=== PATIENT | female | born 1965 | race Caucasian/White ===

== ENCOUNTER 2018-03-26 12:18 | Emergency (ER) | payer OTHER ==
--- NOTE | 2018-03-26 13:43 | UC ---
Respiratory Complaint HPI - HPI Summary HPI Summary: 52 y/o female presents to the urgent care c/o nasal congestion w/ yellowish nasal discharge, productive cough w/ yellowish phlegm for the past 2 weeks. Pt reports she has Hx of asthma and she started w/ wheezing about 3 days. She has been using her albuterol inhaler w/o any improvement. Mild SOB this morning. Pt denies fever, chest pain, abdominal pain, dizziness, STUART, N/v/d. - History of Current Complaint Chief Complaint: UCRespiratory Stated Complaint: CONGESTION ASTHMA Time Seen by Provider: 03/26/18 13:26 Hx Obtained From: Patient ?: No - Hx of hysterectomy Onset/Duration: Gradual Onset, Lasting Weeks - 2 weeks of URI symptoms, Still Present, Worse Since - 2 days w/ a lot of wheezing Timing: Intermittent Episodes Severity Initially: Mild Severity Currently: Moderate Pain Intensity: 2 - body aches Pain Scale Used: 0-10 Numeric Character: Cough: Productive, Sputum Description: - yellowish Aggravating Factors: Recumbent Position Alleviating Factors: Bronchodilator, OTC Meds Associated Signs And Symptoms: Positive: Dyspnea, Chills, Wheezing, URI, Nasal Congestion, Sinus Discomfort - Risk Factors Pulmonary Embolism Risk Factors: Negative Cardiac Risk Factors: Negative Pseudomonas Risk Factors: Negative Tuberculosis Risk Factors: Negative - Allergies/Home Medications Allergies/Adverse Reactions: Allergies Allergy/AdvReac Type Severity Reaction Status Date / Time bee venom protein (honey bee) Allergy Swelling Verified 03/26/18 12:36 codeine Allergy anaph Verified 03/26/18 12:37 Penicillins Allergy Hives Verified 03/26/18 12:37 Home Medications: Home Medications FLUoxetine CAP* [Prozac CAP*] 5 mg PO DAILY 03/26/18 [History Confirmed 03/26/18 ] traZODone TAB* [Desyrel TAB*] 29 mg PO DAILY 03/26/18 [History Confirmed ] PMH/Surg Hx/FS Hx/Imm Hx Previously Healthy: Yes Respiratory History: Asthma - Surgical History Surgical History: Yes Surgery Procedure, Year, and Place: Hysterectomy, 2008, [place]. Right Carpal Tunnel, 2007, [facility]. , 1987, [facility] - Family History Known Family History: Positive: Cardiac Disease, Hypertension, Diabetes - Social History Occupation: Employed Full-time Lives: With Family Alcohol Use: Rare Substance Use Type: None Smoking Status (MU): Never Smoked Tobacco - Immunization History Most Recent Influenza Vaccination: Not the Season Review of Systems All Other Systems Reviewed And Are Negative: Yes Constitutional: Positive: Negative Skin: Positive: Negative Eyes: Positive: Negative ENT: Positive: Ear Ache - b/L ear pressure, Nasal Discharge - yellowish, Sinus Congestion, Sinus Pain/Tenderness Respiratory: Positive: Shortness Of Breath - mild, Cough - productive, Other - wheezing Cardiovascular: Positive: Negative Gastrointestinal: Positive: Negative Genitourinary: Positive: Negative Motor: Positive: Negative Neurovascular: Positive: Negative Musculoskeletal: Positive: Negative Neurological: Positive: Negative Psychological: Positive: Negative Is Patient Immunocompromised?: No Physical Exam - Summary Physical Exam Summary: Vital Signs Reviewed: Yes General: well developed, well nourished obese female sitting in the examining table w/o any apparent distress Eyes: Positive: Conjunctiva Clear - PERRLA, EOMI, fundi grossly normal ENT: Positive: Normal ENT inspection, Hearing grossly normal, Pharynx normal, Nasal congestion - edematous and erythematous nasal mucosa, Nasal drainage - yellowish drainage, TMs normal. Negative: Tonsillar swelling, Tonsillar exudate Neck: Positive: Supple, Nontender, No Lymphadenopathy Respiratory: no orthopnea or dyspnea. Able to speak in full sentences, no retractions or accessory muscle use, no tripod position, stridor, or head bobbing. Positive breath sounds bilaterally. diffuse scattered wheezing and rhonchi on b/L lungs, no crackles or rales. Cardiovascular: Positive: RRR, No Murmur, Pulses Normal, Brisk Capillary Refill Abdomen Description: Positive: Nontender, No Organomegaly, Soft. Negative: CVA Tenderness (R), CVA Tenderness (L) Bowel Sounds: Positive: Present Musculoskeletal Exam: Normal Musculoskeletal: Positive: Strength Intact, ROM Intact, No Edema Neurological Exam: Normal Psychological Exam: Normal Skin Exam: Normal Triage Information Reviewed: Yes Vital Signs: Initial Vital Signs Temp 97.7 F 03/26/18 12:32 Pulse 87 03/26/18 12:32 Resp 16 03/26/18 12:32 BP 137/61 03/26/18 12:32 Pulse Ox 98 03/26/18 12:32 UC Diagnostic Evaluation - Laboratory O2 Sat by Pulse Oximetry: 98 Respiratory Course/Dx - Course Course Of Treatment: 52 y/o female presents to the urgent care c/o nasal congestion w/ yellowish nasal discharge, productive cough w/ yellowish phlegm for the past 2 weeks. Pt reports she has Hx of asthma and she started w/ wheezing about 3 days. She has been using her albuterol inhaler w/o any improvement. Mild SOB this morning. Pt denies fever, chest pain, abdominal pain , dizziness, STUART, N/v/d. Hx obtained. Pt w/ scattered wheezes on bilaterally lungs, and mild rhonchi, good air entry B/L on examination. O2Sat:98%. Pt given Prednisone PO and Duoneb Treatment to alleviate symptoms. Chest X-ray ordered: impression: No acute cardiopulmonary disease observed as per radiologist. Pt w/ acute asthma exacerbation due to bronchitis. Pt tolerated well treatment and lungs improved,and wheezing resolved. Patient prescribed Doxyxycline PO, Prednisone taper dose, Albuterol neb. to alleviate symptoms as directed below. The patient was recommended to increase fluid intake. Take medications as recommended. Pt advised to returned to the clinic or f/u w/ her PCP if symptoms do not improve. All D/C instructions explained. Patient understood and agree w/ plan of care. Pt left clinic hemodynamically stable , A& OX3 - Differential Dx/Diagnosis Differential Diagnosis/HQI/PQRI: Bronchitis, Influenza, Lower Resp Infection, Sinusitis, Other - pneumonia Provider Diagnosis: Asthma with acute exacerbation in adult, Bronchitis Discharge - Sign-Out/Discharge Documenting (check all that apply): Patient Departure - d/c home All imaging exams completed and their final reports reviewed: Yes - Discharge Plan Condition: Stable Disposition: HOME Prescriptions: Albuterol/Ipratropium NEB.SIDNEY* [Duoneb (Albuterol 2.5 MG/Ipratropium 0.5 MG)] 1 neb INH Q6H PRN #1 charo PRN Reason: Wheezing DOXYcycline CAP(*) [DOXYcycline 100MG CAP(*)] 100 mg PO BID #20 cap predniSONE TAB* [Deltasone 20 MG TAB*] 20 mg PO DAILY #8 tab Patient Education Materials: Asthma (ED), Acute Bronchitis (ED) Forms: *Work Release Referrals: Zully Reyna MD [Primary Care Provider] - Additional Instructions: 1- Take Prednisone PO taper dose as directed starting tomorrow. First loading dose given today. 2- Take Doxycycline PO full course of the antibiotic as directed 3-Use the Duoneb nebulizer treatment to alleviate SOB, and wheezing as directed . Increase fluid intake, rest and eat well. 4- If symptoms do not improve or worsen or your develop SOB with fever and severe wheezing please go immediately to the ER further evaluation and treatment. 5- F/u with your PCP in 2-3 days for further management on your Asthma - Billing Disposition and Condition Condition: STABLE Disposition: Home
[2018-03-26] MEDS ORDERED: Albuterol/Ipratropium NEB.SOL* Albuterol 2.5 MG/Ipratropium 0.5 MG 3 ML INH ONE (13:50)
[2018-03-26] MEDS ORDERED: predniSONE TAB* 20 MG PO ONE (13:50)
[2018-03-26 14:40] VITALS: BP 132/67
== END 2018-03-26 14:56 | disposition home or self-care (01) ==
LOC: UCEAST 12:18
DX: J45.901 Unspecified asthma with (acute) exacerbation (principal); J40 Bronchitis, not specified as acute or chronic; Z88.5 Allergy status to narcotic agent; Z88.0 Allergy status to penicillin; Z91.030 Bee allergy status
CPT/HCPCS: 71046; 99212; A9270-GY; G0463; J7512